=== PATIENT | female | born 1950 | race Caucasian/White ===

== ENCOUNTER 2017-11-09 22:33 | Inpatient (IN) | payer OTHER ==
[~2017-11-09] VITALS: Ht 154.9 cm; Wt 78.5 kg
--- NOTE | 2017-11-09 00:29 | NUR ---
GPS RN NOTE, PATIENT HAS A COMPLAINT OF FEELING ANXIOUS AND IS REQUESTING ATIVAN AT THIS TIME. PATIENT VITAL SIGNS ARE STABLE. GAVE ATIVAN 0.5MG PO Q6HR PRN. WILL REASSESS FOR ANXIETY AND I WILL CONTINUE TO MONITOR THIS PATIENT.
[2017-11-09 23:00] VITALS: BP 153/80
[2017-11-09] MEDS ORDERED: MAGNESIUM HYDROXIDE 30 ML UDC PO PRN (23:30)
[2017-11-09] MEDS ORDERED: ACETAMINOPHEN 325 MG TABLET PO PRN (23:30)
--- NOTE | 2017-11-09 23:30 | NUR ---
GPS ADMISSION NOTE, RECEIVED PATIENT FROM [facility]. PATIENT ARRIVED ON THIS UNIT AT 2330 VIA WHEELCHAIR WITH 1 AUDIOVISUAL EQUIPMENT OPERATOR ESCORT. PATIENT ADMITTED ON A 5150 HOLD FOR DTS. PER HOLD PATIENT DAUGHTER HAS BEEN RECEIVING SUICIDAL TEXT MESSAGES. PATIENT HAS BEEN FEELING SUICIDAL BUT DOES NOT HAVE A PLAN TO CARRY OUT. THE 5150 WAS REVIEWED AND THE DOCUMENTATION IN THE 5150 HOLD APPEARS TO REFLECT THE PRESENTATION OF THE PATIENT. UPON FACE TO FACE ASSESSMENT PATIENT IS CURRENTLY LYING IN BED AWAKE, HAS A COMPLAINT OF CHRONIC ABDOMINAL PAIN AT THIS TIME. PATIENT IS TAKING ORAL PAIN MEDICATION FOR THIS PAIN. PATIENT IS DISPLAYING NO S/S OF APPARENT DISTRESS. PATIENT BREATHING IS UNLABORED WITH EQUAL RISE AND FALL OF THE CHEST. PATIENT IS ALERT AND ORIENTATED X 2 ON ROOM AIR. PATIENT ASSISTED WITH TURING AND REPOSITIONING Q2HR AND PRN FOR COMFORT AND CIRCULATION. PATIENT HAS NO NEEDS AT THIS TIME. PATIENT IS NOTED TO BEING, ANXIOUS, DISHEVELED, DISORGANIZED, COOPERATIVE, AND NEEDS REDIRECTION. PATIENT DENIES SUICIDE IDEATIONS AND HOMICIDAL IDEATIONS AT THIS TIME. PATIENT IS UNDER THE PSYCHIATRIC CARE OF DR. BRANDON AND THE MEDICAL CARE OF DR DAS. PATIENT BELONGINGS WERE INVENTORIED AND CHECKED FOR CONTRABAND. ALL CONTRABAND REMOVED AND STORED IN PATIENT HALLWAY LOCKER. PATIENT ADVANCED DIRECTIVES PREFERENCE, IMMUNIZATIONS QUESTIONER, NECESSARY PAPERWORK, AND SKIN ASSESSMENT COMPLETED. PATIENT ORIENTATED TO ROOM, FLOOR, AND STAFF WITH ALL QUESTIONS ANSWERED. PATIENT EDUCATED ON THE USE OF THE CALL SHAW. PATIENT BED SIDE RAILS ARE UP X 2 FOR SAFETY. PATIENT BED IS LOCKED, LOW AND I WILL CONTINUE TO MONITOR THIS PATIENT Q 15 MIN WITH THE HELP OF STAFF TO MAINTAIN SAFETY.
[2017-11-10] MEDS ORDERED: ONDA4TAB8 PO (00:13)
[2017-11-10] MEDS ORDERED: LOPE2CAP PO (00:13)
[2017-11-10] MEDS ORDERED: SUCR1ORA PO (00:13)
[2017-11-10] MEDS ORDERED: ESOM40CA PO (00:13)
[2017-11-10] MEDS ORDERED: ALBU0.633 INH (00:13)
[2017-11-10] MEDS ORDERED: METO-356 PO (00:13)
[2017-11-10] MEDS ORDERED: LOSA100T15 PO (00:13)
[2017-11-10] MEDS ORDERED: TIOT18CA3 IH (00:13)
[2017-11-10] MEDS ORDERED: OXYC-128 PO (00:19)
[2017-11-10] MEDS ORDERED: OXYC5CAP18 PO (00:19)
[2017-11-10] MEDS ORDERED: RANI150T8 PO (00:20)
[2017-11-10] MEDS: LORAZEPAM 0.5 MG TABLET PO PRN ×2 (00:29→18:27)
--- NOTE | 2017-11-10 01:39 | NUR ---
GPS RN NOTE, PATIENT HAS A COMPLAINT OF CHRONIC ABDOMINAL PAIN AT 6 OUT 10 ON THE PAIN SCALE AND IS REQUESTING MEDICATION AT THIS TIME. PATIENT ALSO NEEDS A MED RECONCILIATION AND A NICOTINE PATCH. PAGED [facility] AND INFORMED JOSI ADS DNP OF MY FINDINGS. JOSI DAS DNP ORDERED PERCOCET 5-325 1 UD TAB PO Q6HR PRN, CARAFATE 1G PO Q6HR PRN, AND A NICOTINE PATCH 7MG TD DAILY. ALL ORDERS NOTED AND CARRIED OUT WILL CONTINUE TO MONITOR THIS PATIENT.
[2017-11-10] MEDS: oxyCODONE/APAP (5/325 MG) 1 UDTAB TABLET PO PRN ×3 (02:00→16:31)
--- NOTE | 2017-11-10 02:00 | NUR ---
GPS RN NOTE, PATIENT HAS A COMPLAINT OF CHRONIC LEFT UPPER ABDOMINAL PAIN AT 4 OUT 10 ON THE PAIN SCALE AND IS REQUESTING PERCOCET AT THIS TIME. PATIENT VITAL SIGNS ARE STABLE. GAVE PERCOCET 5-325 1 TAB PO Q6HR PRN ORDERED. WILL REASSESS FOR PAIN AND I WILL CONTINUE TO MONITOR THIS PATIENT.
[2017-11-10] MEDS ORDERED: ONDANSETRON 4 MG TAB.RAPDIS PO PRN (04:30)
[2017-11-10] MEDS ORDERED: ALBUTEROL SULFATE 8 GM HFA.AER.AD IH PRN (04:30)
[2017-11-10 07:10] LABS: BASOPHILS % (AUTO) 0.7 % (0.0-2.0); EOSINOPHILS % (AUTO) 4.1 % (0.0-6.0); HEMATOCRIT 37 % (33-45); HEMOGLOBIN 12.7 g/dL (11.5-14.8); LYMPHOCYTES # (AUTO) 1.7 /CMM (0.8-4.8); LYMPHOCYTES % (AUTO) 43.7 % (20.0-44.0); MEAN CORPUSCULAR HGB CONC 34 g/dl (31.0-36.0); MEAN CORPUSCULAR VOLUME 91 fL (82-100); MONOCYTES # (AUTO) 0.5 /CMM (0.1-1.30); MONOCYTES % (AUTO) 13.4 % (2.0-12.0); NEUTROPHILS # (AUTO) 1.5 /CMM (1.8-8.9); NEUTROPHILS % (AUTO) 38.1 % (43.0-81.0); PLATELET COUNT (AUTO) 92 /CMM (150-450); RDW COEFFICIENT OF VARIATION 15.4 (11.5-15.0); WHITE BLOOD COUNT (AUTO) 3.8 K/uL (4.3-11.0)
[2017-11-10 07:44] LABS: CHOLESTEROL 86 mg/dL (<200); HDL CHOLESTEROL 36 mg/dL (40-60); LDL 43 mg/dL (0-99); TRIGLYCERIDES 78 mg/dL (30-150)
[2017-11-10 07:57] LABS: ALBUMIN 2.9 g/dL (3.4-5.0); BILIRUBIN,TOTAL 0.4 mg/dL (0.2-1.0); CALCIUM, SERUM 8.1 mg/dL (8.5-10.1); CREATININE 0.7 mg/dL (0.6-1.3); POTASSIUM 3.9 mmol/L (3.5-5.1)
[2017-11-10] MEDS: PANTOPRAZOLE 40 MG TABLET.DR PO SCH (07:59)
[2017-11-10 08:00] VITALS: BP 124/66
[2017-11-10] MEDS ORDERED: ALBUTEROL FS 2.5 MG/3 ML VIAL.NEB NEB PRN (08:00)
[2017-11-10] MEDS: METOPROLOL TARTRATE 25 MG TABLET PO SCH ×2 (08:57→16:32)
[2017-11-10] MEDS: LOSARTAN POTASSIUM 50 MG TABLET PO SCH (08:58)
[2017-11-10] MEDS ORDERED: SUCRALFATE 1 G TABLET PO SCH (09:00)
[2017-11-10 09:01] LABS: BAND % (MANUAL) 3 % (0.0-5.0); LYMPHOCYTES % (MANUAL) 51 % (16-48); MONOCYTES % (MANUAL) 16 % (0-11.0); NEUTROPHILS % (MANUAL) 29 (42-76); REACTIVE LYMPHOCYTES 1 % (0-0)
[2017-11-10 09:10] LABS: MAGNESIUM 1.6 mg/dL (1.8-2.4); PHOSPHORUS 2.7 mg/dL (2.5-4.9)
[2017-11-10] MEDS: NICOTINE PATCH (7MG) 7 MG PATCH.TD24 TD SCH (09:20)
--- NOTE | 2017-11-10 09:20 | NUR ---
RN NOTES ADMINISTERED PERCOCET 5/325 MG PO PRN FOR GENERALIZED PAIN 03/22 PRN PATIENT REQUEST, V/S TAKEN BP-124/66, P-65, ENCOURAGED TO INCREASE FLUID INTAKE, CONTINUED MONITORING.
[2017-11-10] MEDS: SUCRALFATE 1 G TABLET PO PRN (11:30)
--- NOTE | 2017-11-10 11:30 | NUR ---
RN NOTES ADMINISTERED CARAFATE 1 G PO PRN, PER PATIENT REQUEST, CONTINUED MONITORING.
[2017-11-10] MEDS: FAMOTIDINE (20 MG) 20 MG TABLET PO SCH (12:23)
[2017-11-10] MEDS ORDERED: MAGNESIUM OXIDE 400 MG TABLET PO ONE (12:30)
[2017-11-10 15:53] VITALS: BP 153/92
--- NOTE | 2017-11-10 16:31 | NUR ---
RN NOTES ADMINISTERED PERCOCET 5/325 MG PO PRN FOR GENERALIZED PAIN 03/22 PER PATIENT REQUEST, V/S TAKEN BP -153/92, P-73, CONTINUED MONITORING.
[2017-11-10] MEDS: GABAPENTIN 100 MG CAPSULE PO SCH (16:32)
[2017-11-10] MEDS ORDERED: DULOXETINE HCL 30 MG CAPSULE.DR PO SCH (17:00)
[2017-11-10] MEDS ORDERED: GABAPENTIN 100 MG CAPSULE PO SCH (17:00)
[2017-11-10] MEDS: IPRATROPIUM NEB FS 0.5 MG/2.5 ML AMPUL.NEB NEB SCH ×2 (17:52→20:10)
--- NOTE | 2017-11-10 18:27 | NUR ---
RN NOTES ADMINISTERED ATIVAN 0.5 MG PO PRN FOR ANXIETY PRESCRIBED, V/S TAKEN STABLE BP- 138/76, P-70, CONTINUED MONITORING.
[2017-11-10 20:00] VITALS: BP 150/93
[2017-11-10] MEDS ORDERED: MIRTAZAPINE 15 MG TABLET PO SCH (20:00)
[2017-11-10] MEDS ORDERED: HOME MED MISCELLANEOUS PO SCH (22:00)
[2017-11-11] MEDS: IPRATROPIUM NEB FS 0.5 MG/2.5 ML AMPUL.NEB NEB SCH ×4 (01:52→19:30)
[2017-11-11 08:00] VITALS: BP 148/86
[2017-11-11] MEDS: FAMOTIDINE (20 MG) 20 MG TABLET PO SCH (08:36)
[2017-11-11] MEDS: PANTOPRAZOLE 40 MG TABLET.DR PO SCH (08:37)
[2017-11-11] MEDS: NICOTINE PATCH (7MG) 7 MG PATCH.TD24 TD SCH (08:38)
[2017-11-11] MEDS: METOPROLOL TARTRATE 25 MG TABLET PO SCH ×2 (08:38→16:23)
[2017-11-11] MEDS: LOSARTAN POTASSIUM 50 MG TABLET PO SCH (08:38)
[2017-11-11] MEDS: GABAPENTIN 100 MG CAPSULE PO SCH ×3 (08:38→16:23)
[2017-11-11] MEDS: oxyCODONE/APAP (5/325 MG) 1 UDTAB TABLET PO PRN ×2 (09:02→18:28)
--- NOTE | 2017-11-11 10:06 | NUR ---
RN NOTES PATIENT REQUESTED PAIN MEDICATIONS FOR LOWER BACK 8/10 PAIN PERCOCET 5/325 MG PO PRN , WILL CONTINUED MONITORING.
[2017-11-11 16:00] VITALS: BP 118/75
[2017-11-11] MEDS: SUCRALFATE 1 G TABLET PO PRN (16:23)
--- NOTE | 2017-11-11 18:35 | NUR ---
RN NOTES PATIENT REQUESTED PAIN MEDICATIONS FOR LOWER BACK 8/10 PAIN PERCOCET 5/325 MG PO PRN , WILL CONTINUED MONITORING.
[2017-11-11] MEDS ORDERED: MIRTAZAPINE 15 MG TABLET PO SCH (20:00)
[2017-11-11] MEDS ORDERED: GABAPENTIN 300 MG CAPSULE PO SCH (20:00)
[2017-11-11 20:21] VITALS: BP 134/72
[2017-11-11] MEDS: TEMAZEPAM 7.5 MG CAPSULE PO PRN (23:16)
--- NOTE | 2017-11-11 23:18 | NUR ---
RN GPS NOTES PT. REQUESTING RESTORIL 7.5 MG PO PRN GIVEN ,PER PT. RERQUEST
[2017-11-12] MEDS: oxyCODONE/APAP (5/325 MG) 1 UDTAB TABLET PO PRN ×3 (00:36→19:03)
[2017-11-12] MEDS: IPRATROPIUM NEB FS 0.5 MG/2.5 ML AMPUL.NEB NEB SCH ×4 (01:30→19:30)
[2017-11-12] MEDS: SUCRALFATE 1 G TABLET PO PRN ×2 (03:08→18:54)
[2017-11-12] MEDS: LORAZEPAM 0.5 MG TABLET PO PRN ×3 (03:09→21:54)
--- NOTE | 2017-11-12 03:15 | NUR ---
RN NOTES ADMINISTERED CARAFATE 1 G PO PRN, PER PATIENT REQUEST, CONTINUED MONITORING AND PT. C/O OF ANXIETY, ATIVAN 0.5 MG PO PRN GIVEN PER PT. REQUEST WILL CONTINUE TO MONITOR
[2017-11-12 08:00] VITALS: BP 119/63
[2017-11-12] MEDS: FAMOTIDINE (20 MG) 20 MG TABLET PO SCH (08:10)
[2017-11-12] MEDS: METOPROLOL TARTRATE 25 MG TABLET PO SCH ×2 (08:11→16:25)
[2017-11-12] MEDS: PANTOPRAZOLE 40 MG TABLET.DR PO SCH (08:12)
[2017-11-12] MEDS: GABAPENTIN 100 MG CAPSULE PO SCH ×3 (08:12→16:24)
[2017-11-12] MEDS: LOSARTAN POTASSIUM 50 MG TABLET PO SCH (08:12)
[2017-11-12] MEDS: NICOTINE PATCH (7MG) 7 MG PATCH.TD24 TD SCH (08:14)
--- NOTE | 2017-11-12 12:47 | NUR ---
Initial Discharge Note: Per patient, she lives in an apt. by herself [address] [place] [address]. Per pt. she does not have her phone number memorized. MARTINE spoke to patient's daughter Kylie Patel [phone]) who confirmed that patient can return home upon discahrge. grain mill worker will help form a safe and proper discharge.
[2017-11-12 16:00] VITALS: BP 114/65
--- NOTE | 2017-11-12 18:54 | NUR ---
GPS RN NOTE, PATIENT HAS A COMPLAINT OF CHRONIC LEFT UPPER ABDOMINAL PAIN AT 4 OUT 10 ON THE PAIN SCALE AND IS REQUESTING CARAFATE AT THIS TIME. PATIENT VITAL SIGNS ARE STABLE. GAVE CARAFATE 1 GRAM PO Q6HR PRN ORDERED. WILL REASSESS FOR PAIN AND I WILL CONTINUE TO MONITOR THIS PATIENT.
--- NOTE | 2017-11-12 19:29 | NUR ---
GPS RN NOTE, RECEIVED PATIENT AWAKE AND IN BED, PATIENT HAS A COMPLAINT OF CHRONIC UPPER ABDOMINAL PAIN AT 5 OUT 10 ON THE PAIN SCALE. PATIENT IS TAKING ORAL PAIN MEDICATION FOR THIS PAIN. PATIENT IS DISPLAYING NO S/S OF APPARENT DISTRESS AT THIS TIME. PATIENT BREATHING IS UNLABORED WITH EQUAL RISE AND FALL OF THE CHEST. PATIENT IS ALERT AND ORIENTED X 3 ON ROOM AIR WITH A SPO2 OF 96%. PATIENT IS COMPLIANT WITH MEDICATION, ANXIOUS AT TIMES, PARANOID, COOPERATIVE, AND NEEDS REORIENTATION. PATIENT DENIES SUICIDE IDEATIONS AND HOMICIDAL IDEATIONS AT THIS TIME. PATIENT ASSISTED WITH TURNING AND REPOSITIONING Q2HR AND PRN FOR COMFORT AND CIRCULATION. PATIENT HAS NO NEEDS AT THIS TIME. PATIENT EDUCATED ON THE USE OF THE CALL SHAW. PATIENT SIDE RAILS ARE UP X 2, BED IS LOCKED AND LOW, AND I WILL CONTINUE TO MONITOR THIS PATIENT Q 15 MIN WITH THE HELP OF STAFF.
[2017-11-12 19:51] VITALS: BP 134/85
[2017-11-12] MEDS ORDERED: MIRTAZAPINE 15 MG TABLET PO SCH (20:00)
[2017-11-12] MEDS: GABAPENTIN 400 MG CAPSULE PO SCH (20:28)
--- NOTE | 2017-11-12 21:54 | NUR ---
GPS RN NOTE, PATIENT HAS A COMPLAINT OF FEELING ANXIOUS AND IS REQUESTING ATIVAN AT THIS TIME. PATIENT VITAL SIGNS ARE STABLE. GAVE ATIVAN 0.5MG Q6HR PRN ORDERED. WILL REASSESS FOR ANXIETY AND I WILL CONTINUE TO MONITOR THIS PATIENT.
[2017-11-13] MEDS: IPRATROPIUM NEB FS 0.5 MG/2.5 ML AMPUL.NEB NEB SCH ×4 (00:44→19:11)
[2017-11-13] MEDS: TEMAZEPAM 7.5 MG CAPSULE PO PRN (01:32)
--- NOTE | 2017-11-13 01:32 | NUR ---
GPS RN NOTE, PATIENT HAS A COMPLAINT OF NOT BEING ABLE TO SLEEP AND IS REQUESTING RESTORIL AT THIS TIME. PATIENT VITAL SIGNS ARE STABLE. GAVE RESTORIL 7.5MG PO HS ORDERED. WILL REASSESS FOR INSOMNIA AND I WILL CONTINUE TO MONITOR THIS PATIENT.
[2017-11-13] MEDS: SUCRALFATE 1 G TABLET PO PRN (02:56)
[2017-11-13] MEDS: oxyCODONE/APAP (5/325 MG) 1 UDTAB TABLET PO PRN ×2 (02:56→18:54)
[2017-11-13] MEDS: PANTOPRAZOLE 40 MG TABLET.DR PO SCH (07:47)
[2017-11-13 08:00] VITALS: BP 123/77
[2017-11-13] MEDS: NICOTINE PATCH (7MG) 7 MG PATCH.TD24 TD SCH (08:07)
[2017-11-13] MEDS: FAMOTIDINE (20 MG) 20 MG TABLET PO SCH (08:08)
[2017-11-13] MEDS: GABAPENTIN 100 MG CAPSULE PO SCH ×3 (08:08→16:58)
[2017-11-13] MEDS: LOSARTAN POTASSIUM 50 MG TABLET PO SCH (08:08)
[2017-11-13] MEDS: METOPROLOL TARTRATE 25 MG TABLET PO SCH ×2 (08:09→16:58)
--- NOTE | 2017-11-13 15:14 | NUR ---
UR Update: MARTINE left clinicals on voicemail to C/M ASSIGNED; BULL Hernández PH: [phone] EXT [phone]. AUTHORIZATION#[id number]. form worker will follow-up.
[2017-11-13 16:03] VITALS: BP 150/82
[2017-11-13] MEDS: GABAPENTIN 400 MG CAPSULE PO SCH (20:27)
[2017-11-13] MEDS: MIRTAZAPINE 15 MG TABLET PO SCH (20:28)
[2017-11-13 21:11] VITALS: BP 109/73
[2017-11-14] MEDS: IPRATROPIUM NEB FS 0.5 MG/2.5 ML AMPUL.NEB NEB SCH ×4 (00:35→20:50)
[2017-11-14 08:00] VITALS: BP 149/88
[2017-11-14] MEDS: NICOTINE PATCH (7MG) 7 MG PATCH.TD24 TD SCH (08:31)
[2017-11-14] MEDS: PANTOPRAZOLE 40 MG TABLET.DR PO SCH (08:31)
[2017-11-14] MEDS: LOSARTAN POTASSIUM 50 MG TABLET PO SCH (08:32)
[2017-11-14] MEDS: METOPROLOL TARTRATE 25 MG TABLET PO SCH ×2 (08:32→16:41)
[2017-11-14] MEDS: GABAPENTIN 100 MG CAPSULE PO SCH ×3 (08:32→16:40)
[2017-11-14] MEDS: FAMOTIDINE (20 MG) 20 MG TABLET PO SCH (08:32)
[2017-11-14] MEDS: oxyCODONE/APAP (5/325 MG) 1 UDTAB TABLET PO PRN ×3 (10:15→22:51)
--- NOTE | 2017-11-14 13:37 | NUR ---
fruit ii farmworker attempted to contact patient's friend Joseline ([phone]) three times, to see if she would be able to pick-up the patient tomorrow November 15, 2017. Joseline was unavailable. SW left her a detailed message with her direct contact information. SW will follow-up.
--- NOTE | 2017-11-14 13:40 | NUR ---
coal chute worker spoke to Marie from administration for the [facility] department who stated that they do not provide return transportation.
--- NOTE | 2017-11-14 13:42 | NUR ---
SW spoke to patient's daughter Kylie Patel ([phone]) to inform her of patient's discharge tomorrow. Kylie stated that she would try to contact patient's friend Joseline and she would also contact patient's other daughter to arrange transportation. SW will follow-up.
--- NOTE | 2017-11-14 13:44 | NUR ---
UR Update: MARTINE left a voicemail for C/M ASSIGNED; BULL Hernández PH: [phone] EXT [phone]. AUTHORIZATION#[id number]. regarding patient's follow-up appointment. alcoholism worker will follow-up.
[2017-11-14] MEDS: LORAZEPAM 0.5 MG TABLET PO PRN (14:13)
[2017-11-14] MEDS: SUCRALFATE 1 G TABLET PO PRN ×2 (14:13→23:21)
--- NOTE | 2017-11-14 14:13 | NUR ---
rn note: patient is anxious and states her stomach hurts. prn lorazepam and sucralfate given.
[2017-11-14 16:00] VITALS: BP 150/82
--- NOTE | 2017-11-14 17:50 | NUR ---
RN NOTE: PATIENTS RECENT VITALS: 145/84, HR: 75, T: 98.7, AND 96 O2.
[2017-11-14] MEDS: GABAPENTIN 400 MG CAPSULE PO SCH (20:20)
[2017-11-14] MEDS: MIRTAZAPINE 15 MG TABLET PO SCH (20:20)
[2017-11-14 20:24] VITALS: BP 144/81
--- NOTE | 2017-11-14 22:50 | NUR ---
RN GPS NOTES PT. C/O GENERALIZED PAIN 8/10 PERCOCET 5MG/325MG PO PRN GIVEN PER PT. REQUEST,V/S WNL NO ACUTE DISTRESS NOTED. WILL CONTINUE TO MONITOR
[2017-11-15] MEDS: MAG HYDROX/AL HYDROX/SIMETH 30 ML UDC PO PRN (01:07)
[2017-11-15] MEDS: IPRATROPIUM NEB FS 0.5 MG/2.5 ML AMPUL.NEB NEB SCH ×4 (01:30→19:30)
--- NOTE | 2017-11-15 02:18 | NUR ---
RN GPS NOTES PT. WAS C/O STOMACH PAIN NOTIFIED REHAB SERVICES AIDE ANDREA WAN RECEIVED TUMS 500 MG Q12HR PRN , NEW ORDERS RECEIVED AND CARRIED OUT.
--- NOTE | 2017-11-15 02:20 | NUR ---
RN GPS NOTES OFFERED TUMS TO PT. BUT PT. REFUSED TO TAKE AT THIS TIME.
[2017-11-15] MEDS: oxyCODONE/APAP (5/325 MG) 1 UDTAB TABLET PO PRN ×3 (04:03→22:55)
--- NOTE | 2017-11-15 04:10 | NUR ---
RN GPS NOTES PT. C/O STOMACH PAIN/ GENERALIZED PAIN 03/22 PERCOCET 5MG/325MG PO PRN GIVEN PER PT. REQUEST,V/S WNL NO ACUTE DISTRESS NOTED. WILL CONTINUE TO MONITOR
[2017-11-15] MEDS: PANTOPRAZOLE 40 MG TABLET.DR PO SCH (08:25)
[2017-11-15] MEDS: LOSARTAN POTASSIUM 50 MG TABLET PO SCH (08:26)
[2017-11-15] MEDS: METOPROLOL TARTRATE 25 MG TABLET PO SCH ×2 (08:26→17:12)
[2017-11-15] MEDS: FAMOTIDINE (20 MG) 20 MG TABLET PO SCH (08:26)
[2017-11-15] MEDS: GABAPENTIN 100 MG CAPSULE PO SCH ×3 (08:26→17:12)
[2017-11-15] MEDS: NICOTINE PATCH (7MG) 7 MG PATCH.TD24 TD SCH (08:26)
[2017-11-15 08:50] VITALS: BP 132/72
--- NOTE | 2017-11-15 14:56 | NUR ---
GPS/RN-NOTES PATIENT REQUESTING PERCOCET FOR 8/10 LOWER ABDOMEN PAIN. PERCOCET 5/325MG 1 TAB. P.O GIVEN PRN ORDER. WILL CONT. MONITORING FOR EFFECTIVENESS.
[2017-11-15 16:21] VITALS: BP 113/66
--- NOTE | 2017-11-15 16:25 | NUR ---
UR Update: MARTINE left a voicemail for C/M ASSIGNED; MAURA Hernández PH: [phone] EXT [phone]. AUTHORIZATION#[id number]. regarding patient's discharge plan. MARTINE informed Maura that patient was not going to be discharged as scheduled due to the fact that patient is stating she is suicidal. MARTINE informed Maura that she would call back with full progress note as soon as it was up in the system. MARTINE will follow-up.
[2017-11-15 20:00] VITALS: BP 135/73
[2017-11-15] MEDS: MIRTAZAPINE 15 MG TABLET PO SCH (20:51)
[2017-11-15] MEDS: GABAPENTIN 400 MG CAPSULE PO SCH (20:51)
[2017-11-15] MEDS: TEMAZEPAM 7.5 MG CAPSULE PO PRN (20:52)
--- NOTE | 2017-11-15 20:52 | NUR ---
TEMAZEPAM 7.5 MG CAP 1 PO GIVEN FOR SLEEP.
--- NOTE | 2017-11-15 22:58 | NUR ---
C/O BACK PAIN, 6/10 ON PAIN SCALE, NORCO 5/325
--- NOTE | 2017-11-15 22:59 | NUR ---
C/O BACK PAIN, 6/10 ON PAIN SCALE, NORCO 5/325 MG TAB PO GIVEN.
--- NOTE | 2017-11-15 23:01 | NUR ---
STILL AWAKE, DUE TO BACK PAIN, MEDICATED
[2017-11-16] MEDS: IPRATROPIUM NEB FS 0.5 MG/2.5 ML AMPUL.NEB NEB SCH ×4 (02:52→19:30)
[2017-11-16 08:00] VITALS: BP 139/84
[2017-11-16] MEDS: FAMOTIDINE (20 MG) 20 MG TABLET PO SCH (09:03)
[2017-11-16] MEDS: GABAPENTIN 100 MG CAPSULE PO SCH ×3 (09:03→16:45)
[2017-11-16] MEDS: METOPROLOL TARTRATE 25 MG TABLET PO SCH ×2 (09:04→16:46)
[2017-11-16] MEDS: LOSARTAN POTASSIUM 50 MG TABLET PO SCH (09:04)
[2017-11-16] MEDS: NICOTINE PATCH (7MG) 7 MG PATCH.TD24 TD SCH (09:04)
[2017-11-16] MEDS: PANTOPRAZOLE 40 MG TABLET.DR PO SCH (09:04)
--- NOTE | 2017-11-16 10:31 | NUR ---
WOUND CARE CONSULT: PT SEEN FOR RT GROIN REDNESS WHICH IS IMPROVING WITH Z GUARD. EVAN SCORE IS 23. PT IS CONTINENT. DISCUSSED SKIN PROTECTION WITH NURSING STAFF. WILL SEE PRN. IN AGREEMENT WITH PLAN OF CARE.
[2017-11-16] MEDS: oxyCODONE/APAP (5/325 MG) 1 UDTAB TABLET PO PRN ×2 (16:52→23:02)
--- NOTE | 2017-11-16 16:52 | NUR ---
AAU-MD-IAYOD: GAVE OXYCODONE AND ACETAMINOPHEN 5MG/325 MG PO DUE TO GENERALIZED PAIN 03/22 UPON PT REQUEST AND WILL CONTINUE TO MONITOR FOR EFFECTIVENESS OF MEDICATION
[2017-11-16] MEDS: MIRTAZAPINE 15 MG TABLET PO SCH (19:45)
[2017-11-16] MEDS: GABAPENTIN 400 MG CAPSULE PO SCH (19:45)
[2017-11-16 20:00] VITALS: BP 148/74
[2017-11-16] MEDS: TEMAZEPAM 7.5 MG CAPSULE PO PRN (21:00)
--- NOTE | 2017-11-16 21:01 | NUR ---
TEMAZEPAM 7.5 MG CAP PO GIVEN FOR SLEEP PER PATIENT'S REQUEST DUE TO HER DIFFICULTY GETTING SLEEP AT NIGHT.
--- NOTE | 2017-11-16 23:03 | NUR ---
c/o back pain, 7/10 on pain scale, oxycodone 5/325 mg tab po given.
[2017-11-17] MEDS: IPRATROPIUM NEB FS 0.5 MG/2.5 ML AMPUL.NEB NEB SCH ×4 (00:58→19:30)
[2017-11-17] MEDS: oxyCODONE/APAP (5/325 MG) 1 UDTAB TABLET PO PRN ×3 (05:13→22:36)
--- NOTE | 2017-11-17 05:13 | NUR ---
C/O OF BACK PAIN, 8/10 ON PAIN SCALE, OXUCODONE 5/325 MG TAB PO GIVEN.
[2017-11-17 08:00] VITALS: BP 126/98
[2017-11-17] MEDS: GABAPENTIN 100 MG CAPSULE PO SCH ×3 (09:12→16:43)
[2017-11-17] MEDS: FAMOTIDINE (20 MG) 20 MG TABLET PO SCH (09:13)
[2017-11-17] MEDS: LORAZEPAM 0.5 MG TABLET PO PRN (09:13)
[2017-11-17] MEDS: CALCIUM CARBONATE 500 MG TAB.CHEW PO PRN ×2 (09:13→21:06)
[2017-11-17] MEDS: LOSARTAN POTASSIUM 50 MG TABLET PO SCH (09:14)
[2017-11-17] MEDS: METOPROLOL TARTRATE 25 MG TABLET PO SCH ×2 (09:14→16:43)
[2017-11-17] MEDS: NICOTINE PATCH (7MG) 7 MG PATCH.TD24 TD SCH (09:14)
[2017-11-17] MEDS: PANTOPRAZOLE 40 MG TABLET.DR PO SCH (09:17)
--- NOTE | 2017-11-17 15:56 | NUR ---
GPS/RN-NOTES PATIENT C/O 9/10 LOWER BACK PAIN. PERCOCET 5/325MG 1 TAB. P.O GIVEN PRN ORDER. WILL CONT.MONITORING.
[2017-11-17 16:00] VITALS: BP 115/68
--- NOTE | 2017-11-17 17:01 | NUR ---
GPS/RN-NOTES PATIENT LAYING IN HER ROOM INTERMITTENTLY SLEEPING,EASILY AROUSES, PAIN LEVEL DOWN TO 1/10 SCALE.
[2017-11-17 20:00] VITALS: BP 149/82
[2017-11-17] MEDS: GABAPENTIN 400 MG CAPSULE PO SCH (21:00)
[2017-11-17] MEDS: MIRTAZAPINE 15 MG TABLET PO SCH (21:00)
[2017-11-17] MEDS: TEMAZEPAM 7.5 MG CAPSULE PO PRN (22:37)
[2017-11-18 08:00] VITALS: BP 143/83
[2017-11-18] MEDS: PANTOPRAZOLE 40 MG TABLET.DR PO SCH (08:05)
[2017-11-18] MEDS: METOPROLOL TARTRATE 25 MG TABLET PO SCH ×2 (09:35→16:50)
[2017-11-18] MEDS: LOSARTAN POTASSIUM 50 MG TABLET PO SCH (09:35)
[2017-11-18] MEDS: NICOTINE PATCH (7MG) 7 MG PATCH.TD24 TD SCH (09:35)
[2017-11-18] MEDS: GABAPENTIN 100 MG CAPSULE PO SCH ×3 (09:35→16:47)
[2017-11-18] MEDS: FAMOTIDINE (20 MG) 20 MG TABLET PO SCH (09:35)
[2017-11-18] MEDS: oxyCODONE/APAP (5/325 MG) 1 UDTAB TABLET PO PRN ×2 (12:50→21:20)
--- NOTE | 2017-11-18 12:55 | NUR ---
GPS/RN-NOTES PATIENT C/O 9/10 LOWER BACK PAIN. PERCOCET 5/325MG 1 TAB. P.O GIVEN PRN ORDER. WILL CONT.MONITORING.
[2017-11-18 16:44] VITALS: BP 147/83
[2017-11-18] MEDS: GABAPENTIN 400 MG CAPSULE PO SCH (20:05)
[2017-11-18] MEDS: CALCIUM CARBONATE 500 MG TAB.CHEW PO PRN (20:06)
[2017-11-18] MEDS: MIRTAZAPINE 15 MG TABLET PO SCH (20:06)
[2017-11-18 20:23] VITALS: BP 144/89
[2017-11-18] MEDS: MAG HYDROX/AL HYDROX/SIMETH 30 ML UDC PO PRN (21:18)
[2017-11-18] MEDS: TEMAZEPAM 7.5 MG CAPSULE PO PRN (21:21)
[2017-11-18] MEDS: LORAZEPAM 0.5 MG TABLET PO PRN (23:36)
[2017-11-19] MEDS: oxyCODONE/APAP (5/325 MG) 1 UDTAB TABLET PO PRN ×3 (06:52→21:51)
[2017-11-19 08:00] VITALS: BP 160/85
[2017-11-19] MEDS: PANTOPRAZOLE 40 MG TABLET.DR PO SCH (09:10)
[2017-11-19] MEDS: GABAPENTIN 100 MG CAPSULE PO SCH ×3 (09:10→16:41)
[2017-11-19] MEDS: FAMOTIDINE (20 MG) 20 MG TABLET PO SCH (09:10)
[2017-11-19] MEDS: NICOTINE PATCH (7MG) 7 MG PATCH.TD24 TD SCH (09:10)
[2017-11-19] MEDS: METOPROLOL TARTRATE 25 MG TABLET PO SCH ×2 (09:11→16:42)
[2017-11-19] MEDS: LOSARTAN POTASSIUM 50 MG TABLET PO SCH (09:11)
[2017-11-19] MEDS: SUCRALFATE 1 G TABLET PO PRN (11:41)
[2017-11-19] MEDS: LORAZEPAM 0.5 MG TABLET PO PRN (13:42)
[2017-11-19 16:00] VITALS: BP 159/80
--- NOTE | 2017-11-19 16:00 | NUR ---
GPS RN NOTES PATIENT IS 55 YEAR OLD FEMALE DISCHARGED HOME WITH IN STABLE CONDITION. PATIENT SEEMS HAPPY AND COOPERATIVE MOTIVATED TO CONTINUATION OF CARE. STATES I WILL HAVE TO COME BACK TO THE HOSPITAL WHEN I FELL SUICIDAL AGAIN". DENIES ANY SUICIDAL AND HOMICIDAL IDEATIONS. MEDICATIONS REVIEWED AND PRESCRIPTION GIVEN. DISCUSSED AFTERCARE WITH TWO FOLLOW UP SCHEDULED WITH PRIMARY CARE PROVIDER AND PSYCHIATRIST. BEHAVIOR IMPROVED. ALL BELONGINGS ACCOUNTED FOR, BELONGING LIST SIGNED. PROVIDED AFTERCARE PLAN TO PATIENT AND CAREGIVER. ESCORTED TO CARE BY AIX SYSTEM ADMINISTRATOR. PATIENT PICKED UP WITH . ID BAND REMOVED.
--- NOTE | 2017-11-19 16:27 | NUR ---
UR Review: MARTINE contacted C/M ASSIGNED; MAURA Hernández PH: [phone] EXT [phone] to provide her with a clinical update. Voicemail recording stated that Maura would be out of the office and returning on 11/21/2017. Message also asked that clinicals not be left on the voicemail as a "childcare center director will reach out on the day of review as cases will be reassigned." MARTINE will follow up.
[2017-11-19 16:35] LABS: AMYLASE 56 U/L (25-115); LIPASE 103 U/L (73-393)
[2017-11-19 20:00] VITALS: BP 156/76
[2017-11-19] MEDS: MIRTAZAPINE 15 MG TABLET PO SCH (20:00)
[2017-11-19] MEDS: GABAPENTIN 400 MG CAPSULE PO SCH (20:44)
--- NOTE | 2017-11-19 20:46 | NUR ---
GPS RN NOTES: PATIENT REFUSED TO TAKE HER REMERON 30MG PO SCHEDULED ON 1999. OFFERED X3, EXPLAINED RISKS AND BENEFITS. WILL CONTINUE TO MONITOR.
[2017-11-19] MEDS: TEMAZEPAM 7.5 MG CAPSULE PO PRN (21:21)
--- NOTE | 2017-11-19 21:51 | NUR ---
GPS RN NOTE: PATIENT C/O OF ABDOMINAL PAIN RADIATING TO BACK, PATIENT REPORTS SEVERE PAIN, ON A SCALE OF 10. PATIENT REQUESTED 2 TABS. ADMINISTERED OXYCODONE 5/325MG PO 2TABS ORDERED FOR SEVERE PAIN. WILL CONTINUE TO MONITOR.
[2017-11-20] MEDS: LORAZEPAM 0.5 MG TABLET PO PRN (00:38)
--- NOTE | 2017-11-20 00:39 | NUR ---
GPS RN NOTE: PATIENT IS ANXIOUS AND RESTLESS. PATIENT REQUESTED FOR ATIVAN. VSS, ADMINISTERED ATIVAN 0.5MG PO ORDERED. WILL CONTINUE TO MONITOR [id number] FOR SAFETY AND BEHAVIOR.
[2017-11-20] MEDS: PANTOPRAZOLE 40 MG TABLET.DR PO SCH (07:30)
[2017-11-20 08:00] VITALS: BP 142/78
[2017-11-20] MEDS: NICOTINE PATCH (7MG) 7 MG PATCH.TD24 TD SCH (09:50)
[2017-11-20] MEDS: GABAPENTIN 100 MG CAPSULE PO SCH ×2 (09:50→13:00)
[2017-11-20] MEDS: FAMOTIDINE (20 MG) 20 MG TABLET PO SCH (09:50)
[2017-11-20] MEDS: CALCIUM CARBONATE 500 MG TAB.CHEW PO PRN (09:50)
[2017-11-20 09:52] VITALS: BP 142/98
[2017-11-20] MEDS: LOSARTAN POTASSIUM 50 MG TABLET PO SCH (09:52)
[2017-11-20] MEDS: METOPROLOL TARTRATE 25 MG TABLET PO SCH (09:52)
--- NOTE | 2017-11-20 10:56 | NUR ---
SW attempted to contact patient's daughter Kylie Patel ([phone]) ([phone]) to inform her that patient is being discharged today. However, she was unavailable. SW left her a detailed message with direct contact information.
--- NOTE | 2017-11-20 11:00 | NUR ---
Patient has a follow-up appointment scheduled with psychiatrist Dr. Coleman ([phone]) on December 05, 2017 at 8:45am [address] [address].
--- NOTE | 2017-11-20 11:07 | NUR ---
hoist worker spoke to patient's friend Joseline ([phone]) to see if she would be able to pick-up the patient. However, she stated that she cannot pick her up.
[2017-11-20] MEDS: oxyCODONE/APAP (5/325 MG) 1 UDTAB TABLET PO PRN (11:09)
--- NOTE | 2017-11-20 11:09 | NUR ---
gaming worker attempted to contact patient's daughter Paola ([phone]). However, she was unavailable. SW left a message with direct contact information.
[2017-11-20] MEDS ORDERED: oxyCODONE/APAP (5/325 MG) 1 UDTAB TABLET PO PRN (11:20)
--- NOTE | 2017-11-20 12:53 | NUR ---
Per patient's daughter Kylie Patel ([phone]), Patient's niece will open the door of her apartment.
--- NOTE | 2017-11-20 13:30 | NUR ---
tank truck operator note:patient alert ,verbally responsive ,denies SI/HI/AVH .Vs stable ,med compliant ,no s/s of distress note ,all discharge instruction given to patient able to verbalize understanding . and notified with discharge orders all belongings returned to patient .Patient refused discharge pictures .Patient picked up by sales route driver helper.
--- NOTE | 2017-11-26 15:08 | NUR ---
MARTINE received a call from [place] from [facility] requesting clinicals for pt. Per Cheyenne pt was only covered through the 18 of November to discharge the ; pt however discharged on 11/20/2017. A note was attached indicating that at the time of discharge pts case was being transferred (to another SW) due to attending SW leaving [facility]. MARTINE faxed to Appeals Department .
--- NOTE | 2018-04-11 09:12 | NUR ---
MARTINE called the pt's daughter, Kylie Patel ([phone]), and provided her with three substance abuse referrals that are listed below. Smoking cessation referrals: [address] [phone] [facility] [phone] ([phone]) [place] [facility] 1-909-XU-BUTTS www.nobutts.org 0-642-233-4TDD
--- NOTE | 2018-04-11 09:27 | NUR ---
SW called the pt, Criselda Jennings ([phone]), and did not get an answer. The SW will call back again to provide the pt with three substance abuse referrals.
--- NOTE | 2018-04-11 11:42 | NUR ---
MARTINE called the pt, Criselda Jennings ([phone]), and provided her with three smoking cessation referrals. The pt stated that she wrote them down and that the [facility] program is close to her home. Smoking cessation referrals: [address] [phone] [facility] Public Health Tobacco Program [phone] ([phone]) [place] [facility] 1-065-OF-BUTTS www.nobutts.org 5-105-016-4TDD
== END 2017-11-20 13:30 | disposition home or self-care (01) | DRG 885 ==
LOC: GPS 22:33
PROVIDERS: ADMIT Psychiatry & Neurology Psychosomatic Medicine; ATTEND Psychiatry & Neurology Psychosomatic Medicine
DX: F25.0 Schizoaffective disorder, bipolar type (principal); B19.20 Unspecified viral hepatitis C without hepatic coma; K85.90 Acute pancreatitis without necrosis or infection, unspecified; R45.851 Suicidal ideations; F29 Unspecified psychosis not due to a substance or known physiological condition; K50.90 Crohn's disease, unspecified, without complications; K86.1 Other chronic pancreatitis; J44.9 Chronic obstructive pulmonary disease, unspecified; K74.60 Unspecified cirrhosis of liver; F17.210 Nicotine dependence, cigarettes, uncomplicated; I25.10 Atherosclerotic heart disease of native coronary artery without angina pectoris; I10 Essential (primary) hypertension; G89.4 Chronic pain syndrome; F11.10 Opioid abuse, uncomplicated; Z87.11 Personal history of peptic ulcer disease; Z79.891 Long term (current) use of opiate analgesic; L60.3 Nail dystrophy; L98.9 Disorder of the skin and subcutaneous tissue, unspecified; Z73.6 Limitation of activities due to disability
CPT/HCPCS: 36415; 80053-TC; 80061-TC; 82150-TC; 83690-TC; 83735-TC; 84100-TC; 85025-TC; 87081-TC